=== PATIENT | male | born 1970 | race African-American/Black ===

== ENCOUNTER 2017-07-07 21:08 | Emergency (ER) | payer OTHER ==
[~2017-07-07] VITALS: Ht 170.2 cm; Wt 72.7 kg
[~2017-07-07 21:08] MED LIST: AMIT10TA6 PO; BUPR-93 PO; BUSP30TA2 PO; QUET300T2 PO; TRAM50TA4 PO
[2017-07-07] MEDS ORDERED: ALPR0.5T8 PO (21:35)
[2017-07-07] MEDS ORDERED: GABA-531 PO (21:35)
[2017-07-07] MEDS ORDERED: BUSP15 PO (21:35)
[2017-07-08 01:36] VITALS: BP 140/87
== END 2017-07-08 01:38 | disposition home or self-care (01) ==
LOC: EMS 21:09
DX: M54.5 Low back pain (principal); G89.29 Other chronic pain; J45.909 Unspecified asthma, uncomplicated; F17.210 Nicotine dependence, cigarettes, uncomplicated
CPT/HCPCS: 72100; 99284

== ENCOUNTER 2022-02-27 12:30 | Emergency (ER) | payer MEDICAID ==
[~2022-02-27] VITALS: Ht 170.2 cm; Wt 84.5 kg
[~2022-02-27 12:30] MED LIST changes: +ALPR-707 PO; -AMIT10TA6 PO; -BUPR-93 PO; +BUSP15 PO; -BUSP30TA2 PO; +GABA-1181 PO; +TRAM-559 PO; -TRAM50TA4 PO
[2022-02-27 12:31] VITALS: BP 144/83
[2022-02-27] MEDS ORDERED: IBUP-2070 PO (13:01)
[2022-02-27] MEDS ORDERED: AMOX1TAB16 PO (13:01)
== END 2022-02-27 13:20 | disposition home or self-care (01) ==
LOC: EMS 12:30
DX: K04.7 Periapical abscess without sinus (principal); J45.909 Unspecified asthma, uncomplicated; F32.A Depression, unspecified; F17.210 Nicotine dependence, cigarettes, uncomplicated
CPT/HCPCS: 99283

== ENCOUNTER 2022-04-21 16:22 | Emergency (ER) | payer OTHER ==
[~2022-04-21] VITALS: Ht 170.2 cm; Wt 83.6 kg
[~2022-04-21 16:22] MED LIST changes: +AMOX1TAB16 PO; +IBUP-1492 PO
[2022-04-21 18:45] VITALS: BP 129/64
[2022-04-21] MEDS ORDERED: AMOXICILLIN TRIHYDRATE 250 MG CAPSULE PO ONE (18:45)
[2022-04-21] MEDS ORDERED: IBUPROFEN 800 MG TABLET PO ONE (18:45)
== END 2022-04-21 18:54 | disposition home or self-care (01) ==
LOC: EMS 16:35
DX: K08.89 Other specified disorders of teeth and supporting structures (principal); J45.909 Unspecified asthma, uncomplicated; F31.9 Bipolar disorder, unspecified; G89.29 Other chronic pain; M54.9 Dorsalgia, unspecified; F17.210 Nicotine dependence, cigarettes, uncomplicated; Z98.890 Other specified postprocedural states
CPT/HCPCS: 99283

== ENCOUNTER 2022-11-05 22:08 | Emergency (ER) | payer OTHER ==
[~2022-11-05] VITALS: Ht 170.2 cm; Wt 75.0 kg
[~2022-11-05 22:08] MED LIST changes: -ALPR-707 PO; -AMOX1TAB16 PO; -GABA-1181 PO; -IBUP-1492 PO; -TRAM-559 PO
[2022-11-06] MEDS ORDERED: AMOX250C4 PO (00:59)
[2022-11-06] MEDS ORDERED: KETOROLAC TROMETHAMINE 30 MG/ML VIAL IM ONE (01:00)
[2022-11-06 01:30] VITALS: BP 132/88; PULSE 78; RESP 16; TEMP 98.3
== END 2022-11-06 03:01 | disposition home or self-care (01) ==
LOC: EMS 22:09
DX: K08.89 Other specified disorders of teeth and supporting structures (principal); J45.909 Unspecified asthma, uncomplicated; F32.A Depression, unspecified; G89.29 Other chronic pain; M54.9 Dorsalgia, unspecified; F17.210 Nicotine dependence, cigarettes, uncomplicated; Z98.890 Other specified postprocedural states
CPT/HCPCS: 99283; 96372; J1885

== ENCOUNTER 2024-06-19 17:59 | Emergency (ER) | payer OTHER ==
[~2024-06-19] VITALS: Ht 170.2 cm; Wt 72.7 kg
[~2024-06-19 17:59] MED LIST changes: +AMOX250C4 PO
[2024-06-19 18:08] VITALS: TEMP 97.1
[2024-06-19 19:43] LABS: BASOPHILS % (AUTO) 1.3 % (0.0-2.0); EOSINOPHILS % (AUTO) 3.9 % (1.0-6.0); HEMATOCRIT 42.6 % (41-53); HEMOGLOBIN 13.8 g/dL (13.5-17.5); LYMPHOCYTES # (AUTO) 1.6 K/uL (1.0-4.8); LYMPHOCYTES % (AUTO) 22.7 % (22.0-44.0); MEAN CORPUSCULAR HEMOGLOBIN 30.4 pg (26.0-34.0); MEAN CORPUSCULAR HGB CONC 32.5 G/dL (31.0-37.0); MEAN CORPUSCULAR VOLUME 94 fL (80-100); MONOCYTES # (AUTO) 0.8 K/uL (0.1-1.0); MONOCYTES % (AUTO) 11.8 % (2.0-9.0); NEUTROPHILS # (AUTO) 4.3 K/uL (1.8-7.7); NEUTROPHILS % (AUTO) 60.3 % (40.0-70.0); PLATELET COUNT (AUTO) 517 K/uL (150-450); RED BLOOD CELL COUNT(AUTO) 4.56 MIL/uL (4.50-5.90); RED CELL DISTRIBUTION WIDTH 13.3 % (11.5-14.5); WHITE BLOOD COUNT (AUTO) 7.1 K/uL (4.5-11.0)
[2024-06-19 19:53] LABS: ANION GAP 4 mmol/L (8-16); CALCIUM, TOTAL 8.9 mg/dL (8.8-10.5); CARBON DIOXIDE 33 mmol/L (22-29); CHLORIDE 102 mmol/L (98-107); GLOMERULAR FILTR. RATE CALC > 60 mL/min (>60); GLUCOSE,RANDOM 128 mg/dL (70-110); LIPASE 41 U/L (16-77); POTASSIUM 4.5 mmol/L (3.5-5.1); SODIUM SERUM 139 mmol/L (136-145); UREA NITROGEN, BLOOD 9 mg/dL (7-18)
[2024-06-19 19:58] LABS: ALBUMIN 2.4 g/dL (3.4-5.0); BILIRUBIN,DIRECT 0.1 mg/dL (0.00-0.20); BILIRUBIN,TOTAL 0.4 mg/dL (0.1-1.0); TOTAL PROTEIN, SERUM 7.9 g/dL (6.4-8.2)
[2024-06-19 23:49] LABS: APPEARANCE,URINE CLEAR (CLEAR); BILIRUBIN,URINE NEGATIVE (NEGATIVE); COLOR,URINE YELLOW (YELLOW); GLUCOSE, URINE (UA) NEGATIVE (NEGATIVE); KETONES,URINE NEGATIVE (NEGATIVE); LEUKOCYTE ESTERASE ,URINE NEGATIVE (NEGATIVE); NITRATE,URINE NEGATIVE (NEGATIVE); OCCULT BLOOD,URINE NEGATIVE (NEGATIVE); PROTEIN,URINE >600,SEE CONFIRM mg/dL (NEGATIVE); SPECIFIC GRAVITIY, URINE 1.032 (1.003-1.030)
[2024-06-19 23:51] LABS: SULFOSALICYLIC ACID,URINE 3+ (Negative)
[2024-06-19 23:52] LABS: BACTERIA,URINE Few /HPF (None Seen); RBC,URINE 0-2 /HPF (0-2); WBC,URINE 0-2 /HPF (0-5)
[2024-06-20] MEDS ORDERED: ONDA-104 PO (01:04)
[2024-06-20] MEDS: DICYCLOMINE HCL 10 MG CAPSULE PO ONE (01:39)
[2024-06-20] MEDS: ONDANSETRON 4 MG TABLET PO ONE (01:40)
[2024-06-20] MEDS: ACETAMINOPHEN 325 MG TABLET PO ONE (01:40)
[2024-06-20 01:48] VITALS: BP 122/65; PULSE 78; RESP 18; O2SAT 98
== END 2024-06-20 02:05 | disposition home or self-care (01) ==
LOC: EMS 18:04
DX: R11.2 Nausea with vomiting, unspecified (principal); R10.84 Generalized abdominal pain; F32.A Depression, unspecified; G89.29 Other chronic pain; M54.9 Dorsalgia, unspecified; J45.909 Unspecified asthma, uncomplicated; F17.210 Nicotine dependence, cigarettes, uncomplicated; Z79.899 Other long term (current) drug therapy
CPT/HCPCS: 99284; 80048; 80076; 81001; 83690; 85025; 36415; Q0162; 81002; 81003